=== PATIENT | male | born 1985 ===

== ENCOUNTER 2017-04-15 13:12 | Emergency (ER) | payer MEDICAID, OTHER ==
[2017-04-15 13:31] VITALS: RESP 18; O2SAT 99
[2017-04-15] MEDS ORDERED: Sodium Chloride 0.9% 1,000 ML IV ONE (14:05)
--- NOTE | 2017-04-15 14:06 | C.PDOC ---
History Of Present Illness 31 y/o male presents to the ED for evaluation of abdominal pain, nausea, and body aches. Pt states that he is withdrawing from heroin, and reports last use was yesterday. He states he snorts heroin, denies IV drug use. Pt is requesting detox. He denies fever/chills, diarrhea, back pain, chest pain, shortness of breath, palpitations. Time Seen by Provider: 04/15/17 13:47 Chief Complaint (Nursing): Substance Abuse History Per: Patient History/Exam Limitations: no limitations Onset/Duration Of Symptoms: Persistent Current Symptoms Are (Timing): Still Present Suicide/Self Injury Attempted (Context): None Modifying Factor(s): Narcotics Severity: Mild Involuntary Hold By: None Past Medical History Reviewed: Historical Data, Nursing Documentation, Vital Signs Vital Signs: Last Vital Signs Temp 98.1 F 04/15/17 15:59 Pulse 64 04/15/17 15:59 Resp 18 04/15/17 15:59 BP 131/79 04/15/17 15:59 Pulse Ox 99 04/15/17 17:24 - Medical History PMH: Sexually Transmitted Disease - [facility] Procedures DETOXIFICATION SERVICES FOR SUBSTANCE ABUSE TREATMENT (01/16/17) GROUP DIRECTOR OF FOOD AND NUTRITION FOR SUBSTANCE ABUSE, COGNITIVE BEHAVIORAL (01/16/17) INDIV PSYCHOTHERAPY FOR SUBSTANCE ABUSE TREATMENT, SUPPORT (01/16/17) INDIV PSYCHOTHERAPY FOR SUBSTANCE ABUSE, COGNITIV BEHAVIORAL (01/16/17) INDIV PSYCHOTHERAPY FOR SUBSTANCE ABUSE, PSYCHOEDUCATION (01/16/17) Family History: States: No Known Family Hx - Social History Hx Alcohol Use: No Hx Substance Use: Yes (x 8 years) - Immunization History Hx Tetanus Toxoid Vaccination: No Hx Influenza Vaccination: No Hx Pneumococcal Vaccination: No Review Of Systems Except As Marked, All Systems Reviewed And Found Negative. Constitutional: Positive for: Other (body aches). Negative for: Fever, Chills Cardiovascular: Negative for: Chest Pain, Palpitations Respiratory: Negative for: Cough, Shortness of Breath Gastrointestinal: Positive for: Nausea, Abdominal Pain. Negative for: Vomiting , Diarrhea, Constipation Musculoskeletal: Negative for: Back Pain Neurological: Negative for: Headache, Dizziness Physical Exam - Physical Exam Appears: Non-toxic, Other (uncomfortable appearing ) Skin: Normal Color, Warm, Dry Head: Normacephalic Eye(s): bilateral: Normal Inspection Oral Mucosa: Moist Neck: Supple Cardiovascular: Rhythm Regular Respiratory: Normal Breath Sounds, No Rales, No Rhonchi, No Wheezing Gastrointestinal/Abdominal: Normal Exam, Bowel Sounds, Soft, No Tenderness Extremity: Normal ROM Extremity: Bilateral: Atraumatic, Normal Color And Temperature, Normal ROM Neurological/Psych: Oriented x3 ED Course And Treatment - Laboratory Results Result Diagrams: 04/15/17 14:55 04/15/17 14:55 O2 Sat by Pulse Oximetry: 99 (on RA) Pulse Ox Interpretation: Normal Progress Note: Blood work ordered and reviewed. Patient given IV NS bolus, IV toradol and IV zofran. Discussed patient [facility] crisis counselor, no detox beds are available. Reevaluation Time: 15:45 Reassessment Condition: Improved (Patient reassessed, is resting comfortably and states he is feeling better. He was given Rxs for Naprosyn and Zofran, and he was instructed to follow up with PMD/clinic in 1-2 days. He was also instructed to return to ED at later date or call crisis for prescreening. Patient understands he should return to ED if symptoms.) Disposition Counseled Patient/Family Regarding: Studies Performed, Diagnosis, Need For Followup, Rx Given - Disposition Referrals: [facility] [Outside] Disposition: HOME/ ROUTINE Disposition Time: 15:45 Condition: STABLE Additional Instructions: FOLLOW UP WITH YOUR DOCTOR/MEDICAL CLINIC IN 1-2 DAYS USE MEDICATIONS NEEDED, AND DRINK PLENTY OF FLUIDS CALL CRISIS NUMBER TO TRY FOR PRESCREENING - Prescriptions: Naproxen [Naprosyn Tab] 375 mg PO BID PRN #15 tab PRN Reason: pain Ondansetron [Zofran Odt] 4 mg PO Q8 PRN #12 odt PRN Reason: Nausea/Vomiting Instructions: Narcotic Abuse (ED) Print Language: PRYDEINIG - POA Present On Arrival: None - Clinical Impression Clinical Impression: Heroin dependence - Scribe Statement The provider has reviewed the documentation as recorded by the Boris Valentin Provider Attestation: All medical record entries made by the Amieibalexia were at my direction and personally dictated by me. I have reviewed the chart and agree that the record accurately reflects my personal performance of the history, physical exam, medical decision making, and the department course for this patient. I have also personally directed, reviewed, and agree with the discharge instructions and disposition.
[2017-04-15] MEDS ORDERED: Sodium Chloride 0.9% 1,000 ML ONE (14:57)
[2017-04-15 14:59] LABS: BASO % 0.5 % (0.0-2.0); HEMATOCRIT 45.6 % (35.0-51.0); LYMPH # 0.9 K/uL (1.0-4.3); LYMPH % 8.5 % (20.0-40.0); MEAN CELL VOLUME 81.6 fL (80.0-94.0); MEAN CORPUSCULAR HEMOGLOBIN 27.9 pg (27.0-31.0); MEAN CORPUSCULAR HGB CONC 34.2 g/dL (33.0-37.0); MEAN PLATELET VOLUME 9.5 fL (7.2-11.7); MONO # 0.3 K/uL (0.0-0.8); MONO % 2.6 % (0.0-10.0); NRBC % 0.2 % (0.0-2.0); PLATELET COUNT 188 K/uL (130-400); RED CELL DISTRIBUTION WIDTH 13.7 % (11.5-14.5); WHITE BLOOD COUNT 10.7 K/uL (4.8-10.8)
[2017-04-15 15:24] LABS: CHLORIDE 97 mmol/L (98-107); POTASSIUM 3.7 mmol/L (3.6-5.2); SODIUM 138 mmol/L (132-148)
[2017-04-15 15:26] LABS: ALB/GLOB RATIO 1.5 (1.0-2.1); ALKALINE PHOSPHATASE 62 U/L (38-126); AST/SGOT 28 U/L (17-59); BILIRUBIN,TOTAL 1.2 mg/dL (0.2-1.3); BLOOD UREA NITROGEN 19 mg/dL (9-20); CARBON DIOXIDE 26 mmol/L (22-30); GFR AFRICAN-AMERICAN > 60; TOTAL PROTEIN 8.6 g/dL (6.3-8.3)
[2017-04-15 15:27] LABS: ALT/SGPT 30 U/L (21-72); CALCIUM 9.3 mg/dl (8.6-10.4); GLUCOSE,RANDOM 94 mg/dL (75-110)
[2017-04-15 16:00] VITALS: BP 131/79; PULSE 64; TEMP 98.1
[2017-04-15 16:22] LABS: NEUTROPHIL 86 % (50-75); TOTAL CELLS COUNTED 100
== END 2017-04-15 16:14 | disposition home or self-care (01) ==
LOC: C.ER 13:12
DX: F11.20 Opioid dependence, uncomplicated (principal)
CPT/HCPCS: 80053; 85025; 96361; 96374; 96375; 99283; J1885; J2405; J7040